=== PATIENT | female | born 2000 | race Caucasian/White ===

== ENCOUNTER → 2023-07-18 15:14 | Outpatient (REF) | payer BC, SELFPAY | LOC: RCS 15:14 | PROVIDERS: ATTENDING PHYSICIAN Internal Medicine Cardiovascular Disease; FAMILY PHYSICIAN Family Medicine | DX: I49.3 Ventricular premature depolarization (principal) | CPT/HCPCS: 93017 ==

== ENCOUNTER 2025-05-30 00:09 | Emergency (ER) | payer SELFPAY ==
[2025-05-30 00:44] VITALS: BMI 27.5
--- NOTE | 2025-05-30 01:01 | ED.GENMED ---
History of Present Illness
General
Chief Complaint: Blood and Body Fluid Exposure
Source: patient
Exam Limitations: none
Time Seen by Provider: 05/30/25 01:01
Nursing documentation reviewed up to this point in time: agreed with
History of Present Illness
History of Present Illness:
24-year-old female presenting to the emergency department today after needlestick exposure to right index finger. 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 Patient is low risk for
having HIV no known history of HIV or infectious diseases.
Past History
Past History
ED Past Medical History: Arrthythmia (Bigeminy, trigeminy), Valvular disease (Mitral prolapse) and Other ('Amplified musculoskeletal pain syndrome', PCOS)
ED Past Surgical History: None
Social History
Tobacco: Non-smoker
Review of Systems
Review of Systems
Allergies reviewed?: Yes
All Other Systems: ROS reviewed and negative except as documented in HPI and ROS
Phy Exam
Physical Exam
Physical Exam:
GENERAL: Alert , in no apparent distress
EYE: Normal appearance of the eyes.
NECK: No visible abnormality, trachea midline
ENT: No visible abnormalities mmm.
LUNGS: no acute respiratory distress
NEUROLOGICAL: Alert and oriented, no focal neuro deficits
SKIN: Small pinpoint injury to the right index finger on the proximal radial aspect. No active bleeding. Warm and dry, skin intact.
MUSCULOSKELETAL: Moving all extremities normally
PSYCH: Normal and appropriate interaction.
Course
Orders/Labs/Results
Orders:
Orders
05/30/25 00:24
Pt has had a significant HIV exposure? Routine
HIV Exposure is significant?: Yes
05/30/25 00:36
HIV Combo Urgent
Hepatitis B Surface Antibody Urgent
Hepatitis B Surface Antigen Urgent
Hepatitis C Antibody Urgent
Vital Signs
Initial and Last Documented VS:
Initial Vital Signs
Temp Pulse Resp Pulse Ox
98.8 F 61 18 98
05/30/25 00:45 05/30/25 00:45 05/30/25 00:45 05/30/25 00:45
Last Documented Vital Signs
Temp Pulse Resp Pulse Ox
98.8 F 61 18 98
05/30/25 00:45 05/30/25 00:45 05/30/25 00:45 05/30/25 01:05
MDM/Problems Addressed
MDM/Problems Addressed:
24-year-old female presenting with concerns of needlestick exposure. 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 She immediately cleaned the area. No ongoing
bleeding at the time of my. Deemed low risk for Post exposure prophylaxis was not started but baseline testing was sent of herself as well as the source patient. Patient is up-to-date with her tetanus shot receiving last 4 years ago otherwise
stable. No additional testing at this point. Plan to follow-up.
*Pulse Oximetry
SaO2: 98
Oxygen Mode of Delivery: Room air
Patient hypoxic: no (98)
*Critical Care Note
Total Time (30-74mins, 75-104mins- exclusive of procedures): Not Applicable
ED Attending Note
-
Portions of this chart may have been created with voice recognition software.� Occasional wrong word or��sound alike� substitutions may have occurred due to the inherent limitations of voice recognition software.
Discharge Plan
Departure
Patient Disposition: Home (Routine Discharge)
Date of Disposition: 05/30/25
Time of Disposition: 01:04
Patient with high blood pressure during this ER visit?: No
Condition: Good
Covid-19: Not Applicable
Discharge Problem:
Needlestick injury accident with exposure to body fluid
Prescriptions:
No Action
buspirone 5 mg tablet
10 mg PO HS
norethindrone-e.estradiol-iron [Alee Fe 1.5/30 (28)] 1.5 mg-30 mcg (21)/75 mg (7) tablet
1 tab PO HS
prazosin 1 mg capsule
1 mg PO HS
trazodone 100 mg tablet
50 mg PO HS
metoprolol succinate 25 mg tablet extended release 24 hr
25 mg PO HS
escitalopram oxalate 20 mg tablet
20 mg PO HS
docusate sodium [Colace] 100 mg Capsule
100 mg PO DAILY PRN (Reason: constipation)
cholecalciferol (vitamin D3) [Vitamin D3] 25 mcg (1,000 unit) Tablet
25 mcg PO DAILY PRN (Reason: supplement)
Fish Oil
1 cap PO DAILY PRN (Reason: supplement)
inositol
1 tab PO DAILY PRN (Reason: supplement)
magnesium
1 tab PO DAILY PRN (Reason: supplement)
Stand Alone Forms: Bl/Fluid Consent/Declination, Blood Body/Fluid Exposure
Interventions
Interventions:
*Risk Screen - Suicide Last Done: 05/30/25 00:55
*General Assessment Last Done: 05/30/25 00:54
*Neglect/Abuse Screening Last Done: 05/30/25 00:56
*ED COVID-19 Vaccine History Last Done: 05/30/25 00:55
*ED Influenza Vaccine History Last Done: 05/30/25 00:55
Discharge Date and Time
Print Language: SWEDISH
[2025-05-30 01:49] LABS: Hepatitis B Surface Antigen Negative (Negative)
[2025-05-30 02:06] LABS: Hepatitis C Antibody Negative (Negative)
== END 2025-05-30 01:19 | disposition home or self-care (01) ==
LOC: EMR 00:09
PROVIDERS: Physician Assistant; EMERGENCY PHYSICIAN Student in an Organized Health Care Education/Training Program; FAMILY PHYSICIAN Family Medicine
DX: Z77.21 Contact with and (suspected) exposure to potentially hazardous body fluids (principal); W46.0XXA Contact with hypodermic needle, initial encounter; Y99.0 Civilian activity done for income or pay; I34.1 Nonrheumatic mitral (valve) prolapse; E28.2 Polycystic ovarian syndrome
CPT/HCPCS: 99283; 86706; 86803; 87340; 87389